=== PATIENT | male | born 1965 | race American Indian/Alaskan Native ===

== ENCOUNTER 2017-09-29 18:20 | Emergency (ER) | payer BC, OTHER ==
[2017-09-29 18:27] VITALS: BP 121/94
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
[2017-09-29] MEDS ORDERED: NORCO 5/325 PO ONE (21:18)
[2017-09-29] MEDS ORDERED: FLEXERIL PO ONE (21:18)
== END 2017-09-29 22:12 | disposition home or self-care (01) ==
LOC: ED 18:20
DX: M19.90 Unspecified osteoarthritis, unspecified site (principal); M79.89 Other specified soft tissue disorders; M25.50 Pain in unspecified joint; V49.49XA Driver injured in collision with other motor vehicles in traffic accident, initial encounter; Y93.89 Activity, other specified; Y92.89 Other specified places as the place of occurrence of the external cause; Y99.8 Other external cause status

== ENCOUNTER 2017-10-16 06:38 | Emergency (ER) | payer SELFPAY ==
[2017-10-16] MEDS ORDERED: FLEXERIL ONE (06:55)
[2017-10-16] MEDS ORDERED: MOTRIN ONE (06:55)
[2017-10-16 07:07] VITALS: BP 155/89
[2017-10-16] MEDS ORDERED: FLEXERIL PO ONE (07:07)
[2017-10-16] MEDS ORDERED: MOTRIN PO ONE (07:07)
[2017-10-16] MEDS ORDERED: TORADOL IM ONE (08:07)
[2017-10-16] MEDS ORDERED: NORCO PO ONE (08:08)
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
== END 2017-10-16 10:35 | disposition home or self-care (01) ==
LOC: ED 06:38
DX: M54.41 Lumbago with sciatica, right side (principal); E78.00 Pure hypercholesterolemia, unspecified; Z90.49 Acquired absence of other specified parts of digestive tract
CPT/HCPCS: 96372; 99282; J1885

== ENCOUNTER 2017-10-21 13:06 | Emergency (ER) | payer SELFPAY ==
[2017-10-21 13:34] VITALS: BP 117/91
== END 2017-10-21 14:03 | disposition left against medical advice (07) ==
LOC: ED 13:06
DX: Z53.21 Procedure and treatment not carried out due to patient leaving prior to being seen by health care provider (principal)

== ENCOUNTER 2017-12-02 06:12 | Day surgery (SDC) | payer BC ==
[~2017-12-02 06:12] MED LIST: DEPO-MEDROL INTRA-ARTI ONE; MARCAINE-EPI/PF 0.5%-1:200,000 IJ ONE
[2017-12-02] MEDS ORDERED: NACL BACTERIOSTATIC INFILTRATI ONE (06:14)
[2017-12-02] MEDS ORDERED: ANCEF/STERILE WATER 2 GM/20 ML IV NR (07:00)
--- NOTE | 2017-12-02 07:00 | Anesthesia Consultation ---
Anesthesia Consult and Med Hx Date of service: 12/02/17 - Airway Anesthetic Teeth Evaluation: Good ROM Head & Neck: Adequate Mental/Hyoid Distance: Adequate Mallampati Class: Class I Intubation Access Assessment: Good - Pulmonary Exam CTA: Yes - Cardiac Exam Cardiac Exam: RRR - Pre-Operative Health Status ASA Pre-Surgery Classification: ASA2 - Pulmonary Hx Smoking: Yes (STOPPED X 1 YR) Hx Sleep Apnea: No (LINETTE PRE SCREEN LOW RISK) - Cardiovascular System Hx Hypertension: No - Central Nervous System Hx Back Pain: Yes - Hematic Hx Anemia: Yes (NOT RECENT) - Other Systems Hx Substance Use: Yes (MARIJUANA 3-4 PER MONTH) Hx Cancer: No
--- NOTE | 2017-12-02 07:00 | Anesthesia Day of Surgery ---
Anesthesia Day of Surgery - Day of Surgery Patient Examined: Yes Patient H&P Reviewed: Yes Patient is NPO: Yes
[2017-12-02] MEDS ORDERED: XYLOCAINE MPF 2% ONE (07:29)
[2017-12-02] MEDS ORDERED: DIPRIVAN 10 MG/ML IV ONE ×2 (07:29→08:20)
[2017-12-02] MEDS ORDERED: DEPO-MEDROL ONE (07:45)
[2017-12-02] MEDS ORDERED: MARCAINE 0.5% 30 ML INFILTRATI ONE (07:46)
[2017-12-02] MEDS ORDERED: DILAUDID ONE (07:54)
[2017-12-02] MEDS ORDERED: DECADRON ONE (07:54)
[2017-12-02] MEDS ORDERED: ZOFRAN ONE (07:54)
[2017-12-02] MEDS ORDERED: LACTATED RINGERS 1,000 ML IV SCH (08:00)
[2017-12-02] MEDS ORDERED: MARCAINE 0.5% INFILTRATI ONE (09:15)
[2017-12-02] MEDS ORDERED: DEPO-MEDROL INTRA-ARTI ONE (09:15)
--- NOTE | 2017-12-02 10:08 | Procedure Note ---
Date of procedure: 12/02/17 Pre-op diagnosis: lateral meniscus tear right knee Post-op diagnosis: same Procedure: Arthroscopy right knee partial lateral meniscectomy abrasion chondroplasty lateral compartment Procedure The patient was brought to the or pleurisy or tubal in a supine position following induction and intubation anesthesia operation right lower extremity was prepped and draped in the usual sterile manner. A timeout procedure was done to identify the patient and the correct operative site. 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 Cartilage tissue. Wound irrigated the arthroscope was removed stab wounds were repaired a mixture of Depo-Medrol and lidocaine was injected into postoperative dressings were applied patient tolerated procedure condition he was sent to postanesthesia recovery in stable condition Anesthesia: GETA Surgeon: JOHN MARTIN Estimated blood loss: minimal Pathology: none Condition: stable Disposition: PACU
[2017-12-02] MEDS ORDERED: NORCO 7.5/325 PO PRN (10:09)
[2017-12-02] MEDS ORDERED: NORCO 7.5/325 ONE (10:13)
--- NOTE | 2017-12-02 10:21 | Post Anesthesia Evaluation ---
- Post Anesthesia Evaluation Patient Participated: Yes Airway Patent: Yes Stable Respiratory Function: Yes Nausea/Vomiting: No Temp > 96.8F: Yes Pain Manageable: Yes Adequeate Hydration: Yes Anesthesia Complications: No
[2017-12-02 12:10] VITALS: BP 150/89
== END 2017-12-02 06:13 | disposition home or self-care (01) ==
LOC: OR 06:12
PROVIDERS: ATTEND Orthopaedic Surgery
DX: M23.200 Derangement of unspecified lateral meniscus due to old tear or injury, right knee (principal); M10.9 Gout, unspecified; E78.5 Hyperlipidemia, unspecified; Z87.891 Personal history of nicotine dependence
CPT/HCPCS: 29881; 29888; J0690; J1030; J1040; J1100; J1170; J2405; J2704; J7120